=== PATIENT | male | born 1975 | race Caucasian/White ===

== ENCOUNTER 2017-11-28 06:12 | Outpatient (CLI) | payer OTHER ==
[~2017-11-28 06:12] MED LIST: ASPI-1265 PO; ATOR20TA PO; INSU100V36 SQ; PANT-47 PO; QUIN20TA29 PO; SUBC1EAC17 MC
[2017-11-28 10:08] LABS: ALANINE AMINOTRANSFERASE 45 U/L (12-78); ALBUMIN 4.1 G/DL (3.4-5.0); ALBUMIN/GLOBULIN RATIO 1.2 (1.1-1.5); ALKALINE PHOSPHATASE 81 IU/L (46-116); ANION GAP 6 (8-16); ASPARTATE AMINO TRANSFERASE 29 U/L (10-37); BILIRUBIN,TOTAL 0.6 MG/DL (0.1-1.0); BLOOD UREA NITROGEN 12 MG/DL (7-18); BUN/CREATININE RATIO 16.7 (5.4-32.0); CALCIUM 9.5 MG/DL (8.5-10.1); CHLORIDE 105 MMOL/L (99-107); CHOL/HDL RATIO 3.2 (0.00-4.99); CHOLESTEROL 174 MG/DL (0-200); CREATININE 0.72 MG/DL (0.60-1.10); GLUCOSE 142 MG/DL (70-104); HDL CHOLESTEROL 55 MG/DL (35-60); LDL CHOLESTEROL 110 MG/DL (50-100); SODIUM 140 MMOL/L (135-145); TOTAL CARBON DIOXIDE 29.1 MMOL/L (24-32); TOTAL PROTEIN 7.4 G/DL (6.4-8.2); TRIGLYCERIDES 66 MG/DL (20-135); eGFR > 90 ML/MIN
[2017-11-28 10:11] LABS: HEMOGLOBIN A1C 9.2 % (4.5-6.2)
== END 2017-11-28 23:59 | disposition home or self-care (01) ==
LOC: LAB 06:12
PROVIDERS: ATTEND Specialist
DX: E10.42 Type 1 diabetes mellitus with diabetic polyneuropathy (principal); I10 Essential (primary) hypertension; E78.00 Pure hypercholesterolemia, unspecified; Z98.890 Other specified postprocedural states
CPT/HCPCS: 36415; 80053; 80061; 83036

== ENCOUNTER 2017-12-05 19:19 | Inpatient (IN) | payer OTHER ==
[~2017-12-05] VITALS: Ht 174 cm; Wt 82.0 kg
[2017-12-05 19:48] LABS: BASOPHILS % (AUTO) 0 % (0-1); EOSINOPHILS % (AUTO) 0 % (0-6); HEMATOCRIT 45.9 % (42.0-52.0); HEMOGLOBIN 15.3 g/dl (14.0-17.9); LYMPHOCYTES # (AUTO) 0.8 X10'3 (1.1-4.8); LYMPHOCYTES % (AUTO) 4.9 % (21-51); MEAN CORPUSCULAR HGB CONC 33.3 % (33.0-36.5); MEAN PLATELET VOLUME 11.4 FL (7.4-10.4); MONOCYTES # (AUTO) 0.7 X10'3 (0-0.9); MONOCYTES % (AUTO) 4.2 % (2-12); NEUTROPHILS # (AUTO) 15.6 X10'3 (1.8-7.7); NEUTROPHILS % (AUTO) 90.9 % (42-75); PLATELET COUNT 254 X10'3 (140-440); RED CELL DISTRIBUTION WIDTH 13.8 % (11.5-14.5); WHITE BLOOD COUNT 17.2 X10'3 (4.5-11.0)
[2017-12-05 20:00] LABS: PARTIAL THROMBOPLASTIN TIME 23 SECONDS (22-32); PROTHROMBIN TIME 10.5 SECONDS (9.0-12.0)
[2017-12-05 20:03] LABS: ALANINE AMINOTRANSFERASE 59 U/L (12-78); ALBUMIN 4.4 G/DL (3.4-5.0); ALBUMIN/GLOBULIN RATIO 1.2 (1.1-1.5); ALKALINE PHOSPHATASE 138 IU/L (46-116); ANION GAP 18 (8-16); ASPARTATE AMINO TRANSFERASE 24 U/L (10-37); BILIRUBIN,TOTAL 1.2 MG/DL (0.1-1.0); BLOOD UREA NITROGEN 29 MG/DL (7-18); BUN/CREATININE RATIO 19.3 (5.4-32.0); CALCIUM 10.2 MG/DL (8.5-10.1); CHLORIDE 95 MMOL/L (99-107); POTASSIUM 4.4 MMOL/L (3.5-5.1); SODIUM 138 MMOL/L (135-145); eGFR 51 ML/MIN
[2017-12-05 20:06] LABS: GLUCOSE 497 MG/DL (70-104)
[2017-12-05 20:14] LABS: GIANT PLATELET FEW; LARGE PLATELETS FEW; PLATELET ESTIMATE NORMAL
[2017-12-05] MEDS ORDERED: normal saline 1000ML IV soln IVB ONE ×2 (21:30→22:35)
[2017-12-05 22:13] LABS: D-DIMER < 0.19 MG/L FEU (0-0.50)
[2017-12-05] MEDS: nitroGLYCERIN 0.4mg SUBLingual tab SL PRN ×2 (23:03→23:19)
[2017-12-05] MEDS ORDERED: aspirin 81mg tab.chew PO ONE (23:20)
[2017-12-05] MEDS ORDERED: QUIN40TA PO (23:27)
[2017-12-05] MEDS ORDERED: MULT-38 PO (23:27)
[2017-12-05] MEDS ORDERED: ATOR40TA PO (23:27)
[2017-12-05] MEDS ORDERED: ondansetron/PF 4mg/2ml inj IV ONE (23:40)
[2017-12-06] MEDS ORDERED: acetaminophen 325mg tablet PO PRN (00:40)
[2017-12-06] MEDS ORDERED: mag hydrox/Alum hydrox/simeth 30ml oral suspension PO PRN (00:40)
[2017-12-06] MEDS ORDERED: ketorolac tromethamine 15mg/ml inj. IV ONE ×2 (00:40→03:20)
[2017-12-06] MEDS ORDERED: ondansetron/PF 4mg/2ml inj IV PRN (00:40)
[2017-12-06] MEDS ORDERED: magnesium hydroxide 30ml (MOM) UD suspension PO PRN (00:40)
[2017-12-06 02:10] VITALS: BP 99/41
[2017-12-06 06:00] VITALS: BP 98/54
[2017-12-06] MEDS ORDERED: dextrose ORAL solution 15 GM/59 ML bottle PO PRN ×2 (06:20)
[2017-12-06] MEDS ORDERED: MESSAGE TO PHARMACY PO ONE (06:20)
[2017-12-06] MEDS ORDERED: glucagon, human recombinant 1mg kit SUBCUT PRN (06:20)
[2017-12-06] MEDS ORDERED: dextrose 50%-water 50ml dispensing syringe IV PRN ×2 (06:20)
[2017-12-06] MEDS: insulin pump.resvr SQ SCH ×4 (08:00→21:00)
[2017-12-06] MEDS ORDERED: QUINAPRIL HCL PO SCH (08:00)
[2017-12-06] MEDS: normal saline 1000ml 1,000 ML IV SCH ×3 (08:41→19:29)
[2017-12-06] MEDS: pantoprazole 40mg Tablet.DR PO SCH (08:45)
[2017-12-06] MEDS: aspirin 81mg tab.chew PO SCH (08:45)
[2017-12-06] MEDS: lisinopril 20mg tablet PO SCH (08:45)
[2017-12-06] MEDS: atorvastatin 20mg tablet PO SCH (08:45)
[2017-12-06 11:00] VITALS: BP 109/57
[2017-12-06] MEDS: indomethacin 25mg capsule PO SCH ×2 (12:23→19:30)
[2017-12-06] MEDS: ketorolac trometh. 30mg/ml inj. IV PRN ×2 (12:23→21:38)
[2017-12-06 15:00] VITALS: BP 105/48
[2017-12-06 20:00] VITALS: BP 108/58
[2017-12-06 23:19] VITALS: BP 104/53
[2017-12-07 03:14] VITALS: BP 90/46
[2017-12-07] MEDS: normal saline 1000ml 1,000 ML IV SCH (05:38)
[2017-12-07] MEDS: ketorolac trometh. 30mg/ml inj. IV PRN (05:39)
[2017-12-07 06:00] VITALS: BP 113/57
[2017-12-07 06:12] LABS: BASOPHILS % (AUTO) 0.4 % (0-1); EOSINOPHILS # (AUTO) 0.2 X10'3 (0-0.9); EOSINOPHILS % (AUTO) 2.2 % (0-6); HEMATOCRIT 37.6 % (42.0-52.0); HEMOGLOBIN 12.7 g/dl (14.0-17.9); LYMPHOCYTES # (AUTO) 2.9 X10'3 (1.1-4.8); LYMPHOCYTES % (AUTO) 32.3 % (21-51); MEAN CORPUSCULAR HEMOGLOBIN 30.6 PG (27.0-31.0); MEAN CORPUSCULAR HGB CONC 33.8 % (33.0-36.5); MEAN CORPUSCULAR VOLUME 90.6 FL (78-98); MEAN PLATELET VOLUME 11.4 FL (7.4-10.4); MONOCYTES # (AUTO) 1.6 X10'3 (0-0.9); MONOCYTES % (AUTO) 17.7 % (2-12); NEUTROPHILS # (AUTO) 4.3 X10'3 (1.8-7.7); NEUTROPHILS % (AUTO) 47.4 % (42-75); PLATELET COUNT 230 X10'3 (140-440); RED BLOOD COUNT 4.15 X10'6 (4.70-6.10); RED CELL DISTRIBUTION WIDTH 13.9 % (11.5-14.5); WHITE BLOOD COUNT 9.1 X10'3 (4.5-11.0)
[2017-12-07 06:37] LABS: ALANINE AMINOTRANSFERASE 44 U/L (12-78); ALBUMIN 3.2 G/DL (3.4-5.0); ALBUMIN/GLOBULIN RATIO 1.2 (1.1-1.5); ALKALINE PHOSPHATASE 71 IU/L (46-116); ANION GAP 4 (8-16); ASPARTATE AMINO TRANSFERASE 28 U/L (10-37); BILIRUBIN,TOTAL 0.8 MG/DL (0.1-1.0); BLOOD UREA NITROGEN 22 MG/DL (7-18); BUN/CREATININE RATIO 27.5 (5.4-32.0); CALCIUM 8.7 MG/DL (8.5-10.1); CHLORIDE 106 MMOL/L (99-107); GLUCOSE 111 MG/DL (70-104); SODIUM 142 MMOL/L (135-145); TOTAL CARBON DIOXIDE 31.7 MMOL/L (24-32); TOTAL PROTEIN 5.9 G/DL (6.4-8.2); eGFR > 90 ML/MIN
[2017-12-07] MEDS: insulin pump.resvr SQ SCH ×2 (07:00→14:15)
[2017-12-07] MEDS: pantoprazole 40mg Tablet.DR PO SCH (08:00)
[2017-12-07] MEDS: indomethacin 25mg capsule PO SCH ×2 (08:01→14:03)
[2017-12-07] MEDS: atorvastatin 20mg tablet PO SCH (08:01)
[2017-12-07] MEDS: aspirin 81mg tab.chew PO SCH (08:01)
[2017-12-07] MEDS: lisinopril 20mg tablet PO SCH (08:02)
[2017-12-07 11:00] VITALS: BP 123/71
[2017-12-07] MEDS ORDERED: INDO25CA PO (11:08)
[2017-12-07] MEDS ORDERED: ketorolac tromethamine 15mg/ml inj. IV PRN (11:15)
== END 2017-12-07 16:21 | disposition home or self-care (01) | DRG 315 ==
LOC: ER 19:19 → ED HOLD 12-06 00:38 → PCU 3S 12-06 02:35
PROVIDERS: ADMIT Internal Medicine; ATTEND Family Medicine
DX: I30.1 Infective pericarditis (principal); N17.9 Acute kidney failure, unspecified; E10.22 Type 1 diabetes mellitus with diabetic chronic kidney disease; I25.10 Atherosclerotic heart disease of native coronary artery without angina pectoris; E86.0 Dehydration; I34.0 Nonrheumatic mitral (valve) insufficiency; Z96.41 Presence of insulin pump (external) (internal); G89.29 Other chronic pain; I12.9 Hypertensive chronic kidney disease with stage 1 through stage 4 chronic kidney disease, or unspecified chronic kidney disease; E78.00 Pure hypercholesterolemia, unspecified; E78.5 Hyperlipidemia, unspecified; K21.9 Gastro-esophageal reflux disease without esophagitis; Z87.11 Personal history of peptic ulcer disease; Z90.81 Acquired absence of spleen; Z88.8 Allergy status to other drugs, medicaments and biological substances; Z90.410 Acquired total absence of pancreas
CPT/HCPCS: 36415; 71045; 80053; 82948; 84484; 85025; 85379; 85610; 85651; 85730; 87070; 93005; 93306; 96374; 96375; 99285; J1885; J2270; J2405; J7030

== ENCOUNTER 2018-01-12 05:45 | Outpatient (CLI) | payer OTHER ==
[~2018-01-12 05:45] MED LIST changes: -ATOR20TA PO; +ATOR40TA PO; +INDO25CA PO; +MULT-38 PO; -QUIN20TA29 PO; +QUIN40TA PO
[2018-01-12 09:27] LABS: ALANINE AMINOTRANSFERASE 69 U/L (12-78); ALBUMIN/GLOBULIN RATIO 1.1 (1.1-1.5); ALKALINE PHOSPHATASE 91 IU/L (46-116); ANION GAP 7 (8-16); ASPARTATE AMINO TRANSFERASE 48 U/L (10-37); BILIRUBIN,TOTAL 0.6 MG/DL (0.1-1.0); BLOOD UREA NITROGEN 15 MG/DL (7-18); BUN/CREATININE RATIO 20.5 (5.4-32.0); CALCIUM 9.5 MG/DL (8.5-10.1); CHLORIDE 107 MMOL/L (99-107); CHOL/HDL RATIO 2.6 (0.00-4.99); CHOLESTEROL 139 MG/DL (0-200); CREATININE 0.73 MG/DL (0.60-1.10); GLUCOSE 74 MG/DL (70-104); HDL CHOLESTEROL 54 MG/DL (35-60); LDL CHOLESTEROL 72 MG/DL (50-100); POTASSIUM 3.9 MMOL/L (3.5-5.1); SODIUM 145 MMOL/L (135-145); TOTAL CARBON DIOXIDE 31.3 MMOL/L (24-32); TOTAL PROTEIN 7.8 G/DL (6.4-8.2); TRIGLYCERIDES 35 MG/DL (20-135); eGFR > 90 ML/MIN
== END 2018-01-12 23:59 | disposition home or self-care (01) ==
LOC: LAB 05:45
PROVIDERS: ATTEND Internal Medicine Interventional Cardiology
DX: E78.5 Hyperlipidemia, unspecified (principal); I10 Essential (primary) hypertension
CPT/HCPCS: 36415; 80053; 80061

== ENCOUNTER 2018-01-17 08:10 | Outpatient (CLI) | payer OTHER ==
[~2018-01-17] VITALS: Ht 175.3 cm; Wt 83.9 kg
[2018-01-17] VITALS (8 sets, daily range): BP systolic 110–129; BP diastolic 69–79
[2018-01-17] MEDS ORDERED: regadenoson 0.4mg/5ml syringe IV ONE ×2 (09:05→09:17)
[2018-01-17] MEDS ORDERED: aminophylline inj. 0 ML IV ONE (09:26)
== END 2018-01-17 23:59 | disposition home or self-care (01) ==
LOC: RAD 08:10
PROVIDERS: ATTEND Internal Medicine Interventional Cardiology
DX: I10 Essential (primary) hypertension (principal); R07.9 Chest pain, unspecified
CPT/HCPCS: 78452; 93017; A9500; J0280

== ENCOUNTER 2018-06-07 09:55 | Outpatient (CLI) | payer OTHER | END 2018-06-07 23:59 | disposition home or self-care (01) | LOC: RAD 09:55 | PROVIDERS: ATTEND Family Medicine | DX: R19.09 Other intra-abdominal and pelvic swelling, mass and lump (principal); R60.0 Localized edema; E10.9 Type 1 diabetes mellitus without complications; K21.9 Gastro-esophageal reflux disease without esophagitis | CPT/HCPCS: 72195 ==

== ENCOUNTER 2018-12-17 05:40 | Outpatient (CLI) | payer OTHER ==
[~2018-12-17 05:40] MED LIST changes: -INDO25CA PO; +INDO25CA18 PO
[2018-12-17 06:13] LABS: HEMOGLOBIN A1C 7.7 % (4.5-6.2)
[2018-12-17 06:18] LABS: ALANINE AMINOTRANSFERASE 41 U/L (12-78); ALBUMIN 3.9 G/DL (3.4-5.0); ALBUMIN/GLOBULIN RATIO 1.1 (1.1-1.5); ALKALINE PHOSPHATASE 79 IU/L (46-116); ANION GAP 6 (8-16); ASPARTATE AMINO TRANSFERASE 21 U/L (10-37); BILIRUBIN,TOTAL 0.6 MG/DL (0.1-1.0); BLOOD UREA NITROGEN 12 MG/DL (7-18); BUN/CREATININE RATIO 13.6 (5.4-32.0); CALCIUM 9.2 MG/DL (8.5-10.1); CHLORIDE 103 MMOL/L (99-107); CHOL/HDL RATIO 3.6 (0.00-4.99); CHOLESTEROL 168 MG/DL (0-200); CREATININE 0.88 MG/DL (0.60-1.10); GLUCOSE 138 MG/DL (70-104); HDL CHOLESTEROL 47 MG/DL (35-60); LDL CHOLESTEROL 110 MG/DL (50-100); POTASSIUM 3.6 MMOL/L (3.5-5.1); SODIUM 141 MMOL/L (135-145); TOTAL CARBON DIOXIDE 31.8 MMOL/L (24-32); TOTAL PROTEIN 7.4 G/DL (6.4-8.2); TRIGLYCERIDES 60 MG/DL (20-135); eGFR > 90 ML/MIN
[2018-12-17 06:45] LABS: HEMATOCRIT 48.6 % (42.0-52.0); HEMOGLOBIN 15.9 g/dl (14.0-17.9); MEAN CORPUSCULAR HEMOGLOBIN 30.2 PG (27.0-31.0); MEAN CORPUSCULAR HGB CONC 32.7 g/dL (33.0-36.5); MEAN CORPUSCULAR VOLUME 92.3 FL (78-98); MEAN PLATELET VOLUME 11.1 FL (7.4-10.4); PLATELET COUNT 281 X10'3 (140-440); RED BLOOD COUNT 5.26 X10'6 (4.70-6.10); RED CELL DISTRIBUTION WIDTH 13.4 % (11.5-14.5); WHITE BLOOD COUNT 10.8 X10'3 (4.5-11.0)
[2018-12-18 11:14] LABS: MICROALB/CRT, RATIO 2.8 mg/g creat (0.0-30.0)
== END 2018-12-17 23:59 | disposition home or self-care (01) ==
LOC: LAB 05:40
PROVIDERS: ATTEND Specialist
DX: E10.42 Type 1 diabetes mellitus with diabetic polyneuropathy (principal); Z79.82 Long term (current) use of aspirin; Z79.899 Other long term (current) drug therapy; Z88.8 Allergy status to other drugs, medicaments and biological substances
CPT/HCPCS: 36415; 80053; 80061; 82043; 82570; 83036; 85027

== ENCOUNTER 2019-07-17 06:51 | Outpatient (CLI) | payer OTHER ==
[~2019-07-17 06:51] MED LIST changes: +INDO-12 PO; -INDO25CA18 PO
[2019-07-17 19:56] LABS: BASOPHILS % (AUTO) 0.4 % (0-1); EOSINOPHILS # (AUTO) 0.1 X10'3 (0-0.9); EOSINOPHILS % (AUTO) 0.6 % (0-6); HEMATOCRIT 46.8 % (42.0-52.0); HEMOGLOBIN 15.4 g/dl (14.0-17.9); LYMPHOCYTES # (AUTO) 3.3 X10'3 (1.1-4.8); LYMPHOCYTES % (AUTO) 28.6 % (21-51); MEAN CORPUSCULAR HEMOGLOBIN 29.7 PG (27.0-31.0); MEAN CORPUSCULAR HGB CONC 32.9 g/dL (33.0-36.5); MEAN CORPUSCULAR VOLUME 90.4 FL (78-98); MEAN PLATELET VOLUME 10.2 FL (7.4-10.4); MONOCYTES # (AUTO) 1.1 X10'3 (0-0.9); MONOCYTES % (AUTO) 9.8 % (2-12); NEUTROPHILS % (AUTO) 60.6 % (42-75); PLATELET COUNT 294 X10'3 (140-440); RED BLOOD COUNT 5.18 X10'6 (4.70-6.10); RED CELL DISTRIBUTION WIDTH 13.8 % (11.5-14.5); WHITE BLOOD COUNT 11.6 X10'3 (4.5-11.0)
[2019-07-17 20:05] LABS: ALBUMIN 4.2 G/DL (3.4-5.0); ANION GAP 6 (8-16); BLOOD UREA NITROGEN 15 MG/DL (7-18); BUN/CREATININE RATIO 18.3 (5.4-32.0); CALCIUM 9.5 MG/DL (8.5-10.1); CHLORIDE 103 MMOL/L (99-107); CREATININE 0.82 MG/DL (0.60-1.10); GLUCOSE 247 MG/DL (70-104); SODIUM 139 MMOL/L (135-145); eGFR > 90 ML/MIN
== END 2019-07-17 23:59 | disposition home or self-care (01) ==
LOC: LAB 06:51
PROVIDERS: ATTEND Physician Assistant Surgical
DX: Z01.818 Encounter for other preprocedural examination (principal)
CPT/HCPCS: 36415; 80048; 85025

== ENCOUNTER 2019-09-09 15:14 | Outpatient (CLI) | payer OTHER ==
[2019-09-09 17:28] LABS: BASOPHILS # (AUTO) 0.1 X10'3 (0-0.2); BASOPHILS % (AUTO) 0.7 % (0-1); EOSINOPHILS # (AUTO) 0.1 X10'3 (0-0.9); EOSINOPHILS % (AUTO) 1.1 % (0-6); HEMATOCRIT 45.9 % (42.0-52.0); HEMOGLOBIN 15.3 g/dl (14.0-17.9); LYMPHOCYTES # (AUTO) 3.1 X10'3 (1.1-4.8); LYMPHOCYTES % (AUTO) 30.1 % (21-51); MEAN CORPUSCULAR HEMOGLOBIN 30.2 PG (27.0-31.0); MEAN CORPUSCULAR HGB CONC 33.2 g/dL (33.0-36.5); MEAN CORPUSCULAR VOLUME 90.9 FL (78-98); MEAN PLATELET VOLUME 10.7 FL (7.4-10.4); MONOCYTES # (AUTO) 1.2 X10'3 (0-0.9); MONOCYTES % (AUTO) 11.9 % (2-12); NEUTROPHILS # (AUTO) 5.8 X10'3 (1.8-7.7); NEUTROPHILS % (AUTO) 56.2 % (42-75); PLATELET COUNT 281 X10'3 (140-440); RED BLOOD COUNT 5.05 X10'6 (4.70-6.10); RED CELL DISTRIBUTION WIDTH 13.6 % (11.5-14.5); WHITE BLOOD COUNT 10.4 X10'3 (4.5-11.0)
[2019-09-09 17:40] LABS: ALANINE AMINOTRANSFERASE 46 U/L (12-78); ALBUMIN 4.1 G/DL (3.4-5.0); ALBUMIN/GLOBULIN RATIO 1.1 (1.1-1.5); ALKALINE PHOSPHATASE 92 IU/L (46-116); ANION GAP 6 (8-16); ASPARTATE AMINO TRANSFERASE 29 U/L (10-37); BILIRUBIN,TOTAL 0.8 MG/DL (0.1-1.0); BLOOD UREA NITROGEN 8 MG/DL (7-18); BUN/CREATININE RATIO 9.6 (5.4-32.0); CALCIUM 9.4 MG/DL (8.5-10.1); CHLORIDE 102 MMOL/L (99-107); CHOL/HDL RATIO 2.9 (0.00-4.99); CHOLESTEROL 137 MG/DL (0-200); CREATININE 0.83 MG/DL (0.60-1.10); GLUCOSE 181 MG/DL (70-104); HDL CHOLESTEROL 47 MG/DL (35-60); LDL CHOLESTEROL 80 MG/DL (50-100); POTASSIUM 3.8 MMOL/L (3.5-5.1); SODIUM 138 MMOL/L (135-145); TOTAL PROTEIN 7.9 G/DL (6.4-8.2); TRIGLYCERIDES 43 MG/DL (20-135); eGFR > 90 ML/MIN
[2019-09-09 18:06] LABS: LARGE PLATELETS FEW; PLATELET ESTIMATE NORMAL
[2019-09-11 08:16] LABS: MICROALB/CRT, RATIO 4.2 mg/g creat (0.0-30.0)
== END 2019-09-09 23:59 | disposition home or self-care (01) ==
LOC: LAB 15:14
PROVIDERS: ATTEND Specialist
DX: E10.9 Type 1 diabetes mellitus without complications (principal); E78.00 Pure hypercholesterolemia, unspecified
CPT/HCPCS: 36415; 80053; 80061; 82043; 82570; 83036; 85025

== ENCOUNTER 2019-09-12 06:52 | Outpatient (CLI) | payer OTHER | END 2019-09-12 23:59 | disposition home or self-care (01) | LOC: LAB 06:52 | PROVIDERS: ATTEND Specialist | DX: E03.9 Hypothyroidism, unspecified (principal) | CPT/HCPCS: 36415; 84439; 84443 ==

== ENCOUNTER 2020-03-10 08:13 | Outpatient (CLI) | payer OTHER ==
[2020-03-10 09:06] LABS: ALANINE AMINOTRANSFERASE 54 U/L (12-78); ALBUMIN 3.9 G/DL (3.4-5.0); ALBUMIN/GLOBULIN RATIO 1.1 (1.1-1.5); ALKALINE PHOSPHATASE 103 IU/L (46-116); ANION GAP 4 (8-16); ASPARTATE AMINO TRANSFERASE 36 U/L (10-37); BILIRUBIN,TOTAL 0.8 MG/DL (0.1-1.0); BLOOD UREA NITROGEN 15 MG/DL (7-18); BUN/CREATININE RATIO 16.7 (5.4-32.0); CHLORIDE 104 MMOL/L (99-107); CHOL/HDL RATIO 3.2 (0.00-4.99); CHOLESTEROL 132 MG/DL (0-200); GLUCOSE 169 MG/DL (70-104); HDL CHOLESTEROL 41 MG/DL (35-60); LDL CHOLESTEROL 75 MG/DL (50-100); POTASSIUM 4.1 MMOL/L (3.5-5.1); SODIUM 139 MMOL/L (135-145); TOTAL PROTEIN 7.4 G/DL (6.4-8.2); TRIGLYCERIDES 49 MG/DL (20-135); eGFR > 90 ML/MIN
[2020-03-10 09:16] LABS: HEMOGLOBIN A1C 8.5 % (4.5-6.2)
== END 2020-03-10 23:59 | disposition home or self-care (01) ==
LOC: LAB 08:13
PROVIDERS: ATTEND Specialist
DX: E10.42 Type 1 diabetes mellitus with diabetic polyneuropathy (principal)
CPT/HCPCS: 36415; 80053; 80061; 83036

== ENCOUNTER 2020-05-16 12:04 | Inpatient (IN) | payer BC, OTHER ==
[~2020-05-16] VITALS: Ht 175.3 cm; Wt 94.5 kg
[~2020-05-16 12:04] MED LIST changes: +LEVO500T2 PO
[2020-05-16 12:31] LABS: BASOPHILS # (AUTO) 0.1 X10'3 (0-0.2); BASOPHILS % (AUTO) 0.4 % (0-1); EOSINOPHILS # (AUTO) 0.1 X10'3 (0-0.9); EOSINOPHILS % (AUTO) 0.3 % (0-6); HEMATOCRIT 51.4 % (42.0-52.0); HEMOGLOBIN 16.9 g/dl (14.0-17.9); LYMPHOCYTES # (AUTO) 2.8 X10'3 (1.1-4.8); LYMPHOCYTES % (AUTO) 13.9 % (21-51); MEAN CORPUSCULAR HEMOGLOBIN 29.7 PG (27.0-31.0); MEAN CORPUSCULAR HGB CONC 32.8 g/dL (33.0-36.5); MEAN CORPUSCULAR VOLUME 90.4 FL (78-98); MEAN PLATELET VOLUME 10.5 FL (7.4-10.4); MONOCYTES # (AUTO) 1.2 X10'3 (0-0.9); MONOCYTES % (AUTO) 6.2 % (2-12); NEUTROPHILS # (AUTO) 15.8 X10'3 (1.8-7.7); NEUTROPHILS % (AUTO) 79.2 % (42-75); PLATELET COUNT 338 X10'3 (140-440); RED BLOOD COUNT 5.69 X10'6 (4.70-6.10); RED CELL DISTRIBUTION WIDTH 14.1 % (11.5-14.5); WHITE BLOOD COUNT 19.9 X10'3 (4.5-11.0)
[2020-05-16 12:47] LABS: ALANINE AMINOTRANSFERASE 37 U/L (12-78); ALBUMIN 4.5 G/DL (3.4-5.0); ALBUMIN/GLOBULIN RATIO 1.2 (1.1-1.5); ALKALINE PHOSPHATASE 104 IU/L (46-116); ANION GAP 5 (8-16); ASPARTATE AMINO TRANSFERASE 25 U/L (10-37); BILIRUBIN,TOTAL 1.3 MG/DL (0.1-1.0); BLOOD UREA NITROGEN 18 MG/DL (7-18); BUN/CREATININE RATIO 17.3 (5.4-32.0); CALCIUM 9.6 MG/DL (8.5-10.1); CHLORIDE 103 MMOL/L (99-107); CREATININE 1.04 MG/DL (0.60-1.10); GLUCOSE 200 MG/DL (70-104); LIPASE < 50 U/L (73-393); POTASSIUM 4.9 MMOL/L (3.5-5.1); SODIUM 140 MMOL/L (135-145); TOTAL CARBON DIOXIDE 31.6 MMOL/L (24-32); TOTAL PROTEIN 8.4 G/DL (6.4-8.2); eGFR 77 ML/MIN
[2020-05-16 12:50] LABS: CLARITY,URINE CLEAR (Clear); COLOR,URINE YELLOW (Yellow); GLUCOSE, URINE 100 mg/dl (Neg); KETONES,URINE NEGATIVE (Neg); LEUKOCYTE ESTERASE ,URINE NEGATIVE (Neg); NITRITES, URINE NEGATIVE (Neg); OCCULT BLOOD,URINE SMALL (Neg); PROTEIN,URINE NEGATIVE (Neg)
[2020-05-16 12:52] LABS: UA COLLECTION TYPE CLN CATCH MIDSTREAM
[2020-05-16 12:55] LABS: BACTERIA,URINE NONE SEEN /HPF (Neg); MUCUS STRANDS MANY /LPF (Neg); SQUAMOUS EPITHELIAL CELL,UR NONE SEEN /LPF (FEW); WBC,URINE NONE SEEN /HPF (0-4)
[2020-05-16] MEDS ORDERED: ondansetron/PF 4mg/2ml inj IV ONE ×3 (13:10→17:20)
[2020-05-16] MEDS ORDERED: morphine 4 MG/ML inj SYRINge IV ONE ×2 (13:10→14:45)
[2020-05-16] MEDS ORDERED: normal saline 1000ml 1,000 ML IV ONE ×2 (14:40→16:35)
[2020-05-16 15:52] LABS: BASOPHILS % (AUTO) 0.1 % (0-1); EOSINOPHILS % (AUTO) 0.1 % (0-6); HEMATOCRIT 46.4 % (42.0-52.0); HEMOGLOBIN 15.1 g/dl (14.0-17.9); LYMPHOCYTES # (AUTO) 1.4 X10'3 (1.1-4.8); LYMPHOCYTES % (AUTO) 5.6 % (21-51); MEAN CORPUSCULAR HEMOGLOBIN 29.6 PG (27.0-31.0); MEAN CORPUSCULAR HGB CONC 32.6 g/dL (33.0-36.5); MEAN CORPUSCULAR VOLUME 90.7 FL (78-98); MEAN PLATELET VOLUME 11.1 FL (7.4-10.4); MONOCYTES # (AUTO) 1.7 X10'3 (0-0.9); MONOCYTES % (AUTO) 6.5 % (2-12); NEUTROPHILS # (AUTO) 22.5 X10'3 (1.8-7.7); NEUTROPHILS % (AUTO) 87.7 % (42-75); PLATELET COUNT 292 X10'3 (140-440); RED BLOOD COUNT 5.12 X10'6 (4.70-6.10); RED CELL DISTRIBUTION WIDTH 13.8 % (11.5-14.5)
[2020-05-16 15:56] LABS: WHITE BLOOD COUNT 25.7 X10'3 (4.5-11.0)
[2020-05-16] MEDS ORDERED: diphenhydrAMINE 50 mg/ml inj IV ONE (16:00)
[2020-05-16] MEDS ORDERED: proCHLORperazine 10 MG/2 ml inj IV ONE (16:00)
[2020-05-16 16:17] LABS: TOTAL CELLS COUNTED 100
[2020-05-16 16:18] LABS: BURR CELLS 1+; LARGE PLATELETS FEW; PLATELET ESTIMATE NORMAL; TOXIC VACUOLATION FEW
[2020-05-16] MEDS ORDERED: magnesium hydroxide 30ml (MOM) UD suspension PO PRN (17:15)
[2020-05-16] MEDS ORDERED: acetaminophen 325mg tablet PO PRN (17:15)
[2020-05-16] MEDS ORDERED: ondansetron/PF 4mg/2ml inj IV PRN (17:15)
[2020-05-16] MEDS ORDERED: morphine 2 MG/ML inj. syringe IV PRN ×2 (17:15)
[2020-05-16] MEDS ORDERED: mag hydrox/Alum hydrox/simeth 30ml oral suspension PO PRN (17:15)
[2020-05-16] MEDS ORDERED: metoclopramide 5 mg/ml inj IV PRN (17:15)
[2020-05-16] MEDS: normal saline 1000ml 1,000 ML IV SCH (17:33)
[2020-05-16] MEDS: piperacillin/tazo 4.5gm/100ml 100 ML IV SCH ×2 (18:26→23:23)
[2020-05-16] MEDS ORDERED: QUIN20TA18 PO (18:32)
--- NOTE | 2020-05-16 19:23 | NUR ---
Patient in room ED 9. I have received report from Claudia MCLEOD and had the opportunity to ask questions and assume patient care.
[2020-05-16 19:40] VITALS: BP 141/71
--- NOTE | 2020-05-16 19:56 | NUR ---
PAGER ID: [phone] MESSAGE: Ronni Marcelo [phone]: Patient manages diabetes with an insulin pump and sensor. Can he continue to utilize this here? -Elsi MCLEOD [id number]
[2020-05-16] MEDS: pantoprazole 40 MG vial IV SCH (20:21)
[2020-05-16] MEDS: heparin, porcine 5000 units/ml vial SQ SCH (20:21)
[2020-05-16 22:00] VITALS: BP 115/79
[2020-05-17] VITALS (12 sets, daily range): BP systolic 107–131; BP diastolic 51–70
[2020-05-17] MEDS: normal saline 1000ml 1,000 ML IV SCH ×3 (01:57→16:02)
[2020-05-17 05:30] LABS: ALBUMIN 3.2 G/DL (3.4-5.0); ANION GAP 7 (8-16); BLOOD UREA NITROGEN 20 MG/DL (7-18); BUN/CREATININE RATIO 17.1 (5.4-32.0); CALCIUM 8.2 MG/DL (8.5-10.1); CHLORIDE 106 MMOL/L (99-107); CREATININE 1.17 MG/DL (0.60-1.10); GLUCOSE 244 MG/DL (70-104); POTASSIUM 4.3 MMOL/L (3.5-5.1); SODIUM 141 MMOL/L (135-145); TOTAL CARBON DIOXIDE 28.4 MMOL/L (24-32); eGFR 67 ML/MIN
--- NOTE | 2020-05-17 06:12 | NUR ---
Problems reprioritized. Patient report given, questions answered & plan of care reviewed with Charley MCLEOD.
[2020-05-17 06:17] LABS: BASOPHILS # (AUTO) 0.1 X10'3 (0-0.2); BASOPHILS % (AUTO) 0.5 % (0-1); EOSINOPHILS # (AUTO) 0.1 X10'3 (0-0.9); EOSINOPHILS % (AUTO) 0.8 % (0-6); HEMATOCRIT 42.1 % (42.0-52.0); HEMOGLOBIN 13.8 g/dl (14.0-17.9); LYMPHOCYTES # (AUTO) 2.5 X10'3 (1.1-4.8); LYMPHOCYTES % (AUTO) 12.8 % (21-51); MEAN CORPUSCULAR HEMOGLOBIN 29.9 PG (27.0-31.0); MEAN CORPUSCULAR HGB CONC 32.8 g/dL (33.0-36.5); MEAN CORPUSCULAR VOLUME 91.2 FL (78-98); MEAN PLATELET VOLUME 11.1 FL (7.4-10.4); MONOCYTES # (AUTO) 1.8 X10'3 (0-0.9); MONOCYTES % (AUTO) 9.2 % (2-12); NEUTROPHILS # (AUTO) 14.9 X10'3 (1.8-7.7); NEUTROPHILS % (AUTO) 76.7 % (42-75); PLATELET COUNT 274 X10'3 (140-440); RED BLOOD COUNT 4.61 X10'6 (4.70-6.10); RED CELL DISTRIBUTION WIDTH 13.8 % (11.5-14.5); WHITE BLOOD COUNT 19.4 X10'3 (4.5-11.0)
--- NOTE | 2020-05-17 06:27 | NUR ---
Patient in room PCU 3021. I have received report from Elsi MCLEOD and had the opportunity to ask questions and assume patient care.
[2020-05-17] MEDS: heparin, porcine 5000 units/ml vial SQ SCH ×2 (07:31→19:35)
[2020-05-17] MEDS: pantoprazole 40 MG vial IV SCH ×2 (07:45→19:35)
[2020-05-17] MEDS: piperacillin/tazo 4.5gm/100ml 100 ML IV SCH ×2 (07:45→16:02)
[2020-05-17 07:54] LABS: BURR CELLS 2+; LARGE PLATELETS FEW; PLATELET ESTIMATE NORMAL
[2020-05-17 07:56] LABS: SCHISTOCYTES FEW
[2020-05-17] MEDS ORDERED: pantoprazole 40mg Tablet.DR PO SCH (08:00)
[2020-05-17] MEDS: atorvastatin 20mg tablet PO SCH (08:27)
[2020-05-17] MEDS: lisinopril 20mg tablet PO SCH (08:28)
--- NOTE | 2020-05-17 10:10 | NUR ---
I have told Dr. Meneses that Ginger from GI stated that the GI doc would like to have patient to have NGT - Dr. Meneses said that he would not order NGT insertion for this patient Addendum: 05/17/20 at 1013 by Jarocho Dominique RN Patient has not feeling nauseous nor vomiting at this time, patient passing gas and has bowel sound during my assessment
[2020-05-17] MEDS ORDERED: LIDOcaine Viscous 15ml cup ONE (12:34)
[2020-05-17] MEDS ORDERED: MIDAZolam 1mg/ml 10ml vial ONE (12:34)
[2020-05-17] MEDS ORDERED: fentaNYL/PF 50MCG/1 ML 2ML syringe ONE (12:34)
--- NOTE | 2020-05-17 15:45 | NUR ---
PAGER ID: [phone] MESSAGE: TITI Avendaño RN ext [phone]. RE: Ronni Marcelo. Patient just got back from EGD result with recommendations in the chart for your review
--- NOTE | 2020-05-17 18:22 | NUR ---
Problems reprioritized. Patient report given, questions answered & plan of care reviewed with Regina MCLEOD.
--- NOTE | 2020-05-17 18:25 | NUR ---
Patient in room PCU 3021. I have received report from SHANI Whitehead and had the opportunity to ask questions and assume patient care.
--- NOTE | 2020-05-17 19:43 | NUR ---
Patient reports that his blood sugar was 136 at 1830 per his sensor.
[2020-05-18] MEDS: piperacillin/tazo 4.5gm/100ml 100 ML IV SCH ×2 (00:09→07:35)
[2020-05-18 01:58] VITALS: BP 108/62
[2020-05-18] MEDS: normal saline 1000ml 1,000 ML IV SCH ×2 (02:00→09:14)
--- NOTE | 2020-05-18 06:07 | NUR ---
Problems reprioritized. Patient report given, questions answered & plan of care reviewed with SHANI Salazar.
[2020-05-18 06:36] LABS: BASOPHILS # (AUTO) 0.1 X10'3 (0-0.2); BASOPHILS % (AUTO) 0.8 % (0-1); EOSINOPHILS # (AUTO) 0.3 X10'3 (0-0.9); EOSINOPHILS % (AUTO) 3.5 % (0-6); HEMATOCRIT 41.2 % (42.0-52.0); HEMOGLOBIN 13.7 g/dl (14.0-17.9); LYMPHOCYTES # (AUTO) 3.1 X10'3 (1.1-4.8); LYMPHOCYTES % (AUTO) 31.1 % (21-51); MEAN CORPUSCULAR HEMOGLOBIN 30.3 PG (27.0-31.0); MEAN CORPUSCULAR HGB CONC 33.2 g/dL (33.0-36.5); MEAN CORPUSCULAR VOLUME 91.2 FL (78-98); MEAN PLATELET VOLUME 11.6 FL (7.4-10.4); MONOCYTES # (AUTO) 1.2 X10'3 (0-0.9); MONOCYTES % (AUTO) 12.7 % (2-12); NEUTROPHILS # (AUTO) 5.1 X10'3 (1.8-7.7); NEUTROPHILS % (AUTO) 51.9 % (42-75); PLATELET COUNT 276 X10'3 (140-440); RED BLOOD COUNT 4.52 X10'6 (4.70-6.10); RED CELL DISTRIBUTION WIDTH 13.8 % (11.5-14.5); WHITE BLOOD COUNT 9.8 X10'3 (4.5-11.0)
[2020-05-18 06:39] LABS: ALBUMIN 3.4 G/DL (3.4-5.0); ANION GAP 5 (8-16); BLOOD UREA NITROGEN 17 MG/DL (7-18); CALCIUM 8.9 MG/DL (8.5-10.1); CHLORIDE 108 MMOL/L (99-107); GLUCOSE 91 MG/DL (70-104); POTASSIUM 3.9 MMOL/L (3.5-5.1); SODIUM 144 MMOL/L (135-145); TOTAL CARBON DIOXIDE 31.2 MMOL/L (24-32); eGFR 80 ML/MIN
[2020-05-18 07:00] VITALS: BP 141/70
[2020-05-18] MEDS: pantoprazole 40 MG vial IV SCH (07:35)
--- NOTE | 2020-05-18 07:47 | NUR ---
Patient in room PCU 3021. I have received report from Regina MCLEOD and had the opportunity to ask questions and assume patient care.
[2020-05-18] MEDS: heparin, porcine 5000 units/ml vial SQ SCH (08:00)
[2020-05-18] MEDS: lisinopril 20mg tablet PO SCH (08:00)
[2020-05-18] MEDS: atorvastatin 20mg tablet PO SCH (10:41)
[2020-05-18] MEDS ORDERED: AMOX-422 PO (11:14)
--- NOTE | 2020-05-18 13:54 | NUR ---
Page sent to Dr. Meneses: PAGER ID: [phone] MESSAGE: [phone] Ronni Marcelo: Patient says he wasn't able to eat the more solid foods on his tray, but ate his mashed potatoes and jello. Just an FYI, still plan on DC'ing patient unless I hear from you otherwise. Thank you, Marie [phone]
--- NOTE | 2020-05-18 14:57 | NUR ---
Patient stable for discharge per MD order. All discharge information and education reviewed with patient before signing necessary paperwork. IV discontinued with catheter in tact, traffic monitor specialist removed, patient belongings packed up, new Rx called in to [facility] on [address]. Patient wheeled down to lobby and driven in private vehicle.
[2020-05-18] MEDS ORDERED: pantoprazole 40mg Tablet.DR PO SCH (20:00)
[2020-05-18] MEDS ORDERED: lactobacillus rhamnosus 10,000 MMU CELLS/CAPSULE PO SCH (20:00)
== END 2020-05-18 14:45 | disposition home or self-care (01) | DRG 872 ==
LOC: ER 12:04 → ED HOLD 17:14 → PCU 3S 19:30
PROVIDERS: ADMIT Family Medicine; ATTEND Family Medicine
DX: A41.9 Sepsis, unspecified organism (principal); K56.609 Unspecified intestinal obstruction, unspecified as to partial versus complete obstruction; K56.7 Ileus, unspecified; K29.80 Duodenitis without bleeding; K21.0 Gastro-esophageal reflux disease with esophagitis; I10 Essential (primary) hypertension; E78.5 Hyperlipidemia, unspecified; E78.00 Pure hypercholesterolemia, unspecified; E11.9 Type 2 diabetes mellitus without complications; K21.9 Gastro-esophageal reflux disease without esophagitis; Z88.1 Allergy status to other antibiotic agents; Z88.8 Allergy status to other drugs, medicaments and biological substances; Z90.81 Acquired absence of spleen
CPT/HCPCS: 36415; 43239; 74176; 80048; 80053; 81001; 83605; 83690; 84145; 85025; 87040; 87081; 99152; 99285; A4620; C9113; G0378; J0780; J1200; J1644; J2250; J2270; J2405; J2543; J3010; J7030; J7040

== ENCOUNTER 2020-10-19 15:28 | Outpatient (CLI) | payer BC ==
[~2020-10-19 15:28] MED LIST changes: -INDO-12 PO; -LEVO500T2 PO; -MULT-38 PO; +QUIN20TA18 PO; -QUIN40TA PO
== END 2020-10-19 23:59 | disposition home or self-care (01) ==
LOC: RAD 15:28
PROVIDERS: ATTEND Orthopaedic Surgery
DX: M17.12 Unilateral primary osteoarthritis, left knee (principal)
CPT/HCPCS: 73564

== ENCOUNTER 2021-01-08 23:24 | Emergency (ER) | payer BC ==
[~2021-01-08] VITALS: Ht 175.3 cm; Wt 88.6 kg
[2021-01-08 23:30] VITALS: BP 142/85
[2021-01-09] MEDS ORDERED: INSU100V11 SQ (00:08)
== END 2021-01-09 00:16 | disposition home or self-care (01) ==
LOC: ER 23:24
DX: E11.9 Type 2 diabetes mellitus without complications (principal); Z76.0 Encounter for issue of repeat prescription; E78.00 Pure hypercholesterolemia, unspecified; I10 Essential (primary) hypertension; K21.9 Gastro-esophageal reflux disease without esophagitis; G89.29 Other chronic pain; Z98.890 Other specified postprocedural states; Z88.8 Allergy status to other drugs, medicaments and biological substances; Z79.82 Long term (current) use of aspirin; Z79.4 Long term (current) use of insulin; Z79.899 Other long term (current) drug therapy
CPT/HCPCS: 99281

== ENCOUNTER 2021-02-16 12:12 | Outpatient (CLI) | payer BC ==
[~2021-02-16 12:12] MED LIST changes: +INSU100V11 SQ
[2021-02-16 20:23] LABS: ALBUMIN 4.2 G/DL (3.4-5.0); ANION GAP 8 (8-16); BLOOD UREA NITROGEN 20 MG/DL (7-18); CALCIUM 9.9 MG/DL (8.5-10.1); CHLORIDE 102 MMOL/L (99-107); CREATININE 0.87 MG/DL (0.60-1.10); GLUCOSE 135 MG/DL (70-104); PHOSPHORUS 3.9 MG/DL (2.3-4.5); POTASSIUM 4.2 MMOL/L (3.5-5.1); SODIUM 142 MMOL/L (135-145); eGFR > 90 ML/MIN
== END 2021-02-16 23:59 | disposition home or self-care (01) ==
LOC: LAB 12:12
PROVIDERS: ATTEND Family Medicine
DX: Z23 Encounter for immunization (principal); E10.9 Type 1 diabetes mellitus without complications
CPT/HCPCS: 36415; 80069; 82043; 82570

== ENCOUNTER 2021-03-31 10:47 | Emergency (ER) | payer BC, OTHER ==
[~2021-03-31] VITALS: Ht 175.3 cm; Wt 88.6 kg
[2021-03-31 10:57] VITALS: BP 142/75
== END 2021-03-31 12:13 | disposition home or self-care (01) ==
LOC: ER 10:47
DX: M25.462 Effusion, left knee (principal); M25.562 Pain in left knee; E78.00 Pure hypercholesterolemia, unspecified; I10 Essential (primary) hypertension; K21.9 Gastro-esophageal reflux disease without esophagitis; E11.9 Type 2 diabetes mellitus without complications; G89.29 Other chronic pain; Z87.11 Personal history of peptic ulcer disease; Z98.890 Other specified postprocedural states; Z88.8 Allergy status to other drugs, medicaments and biological substances; Z79.4 Long term (current) use of insulin; Z79.82 Long term (current) use of aspirin; Z79.899 Other long term (current) drug therapy
CPT/HCPCS: 29505; 73564; 99283

== ENCOUNTER 2021-05-11 10:51 | Outpatient (CLI) | payer OTHER | END 2021-05-11 23:59 | disposition home or self-care (01) | LOC: RAD 10:51 | PROVIDERS: ATTEND Orthopaedic Surgery | DX: M17.12 Unilateral primary osteoarthritis, left knee (principal) | CPT/HCPCS: 73564 ==

== ENCOUNTER 2021-06-13 10:34 | Emergency (ER) | payer BC, OTHER ==
[~2021-06-13] VITALS: Ht 175.3 cm; Wt 86.4 kg
[2021-06-13 11:39] VITALS: BP 157/81
[2021-06-13] MEDS ORDERED: CLIN300C54 PO (12:22)
[2021-06-13] MEDS ORDERED: AMOX-580 PO (12:22)
== END 2021-06-13 13:03 | disposition home or self-care (01) ==
LOC: EEVIPCON 10:36 → ER 10:36
DX: L03.213 Periorbital cellulitis (principal); I10 Essential (primary) hypertension; E78.00 Pure hypercholesterolemia, unspecified; K21.9 Gastro-esophageal reflux disease without esophagitis; Z88.1 Allergy status to other antibiotic agents; Z79.899 Other long term (current) drug therapy
CPT/HCPCS: 99283

== ENCOUNTER 2021-06-14 10:04 | Outpatient (CLI) | payer OTHER ==
[~2021-06-14 10:04] MED LIST changes: +AMOX-580 PO; +CLIN300C54 PO
== END 2021-06-14 23:59 | disposition home or self-care (01) ==
LOC: RAD 10:04
PROVIDERS: ATTEND Orthopaedic Surgery
DX: M25.552 Pain in left hip (principal)
CPT/HCPCS: 73502; 73590

== ENCOUNTER 2021-08-16 08:13 | Outpatient (CLI) | payer BC ==
[~2021-08-16 08:13] MED LIST changes: -AMOX-580 PO; -CLIN300C54 PO
[2021-08-16 09:27] LABS: BASOPHILS # (AUTO) 0.1 X10'3 (0-0.2); BASOPHILS % (AUTO) 1.1 % (0-1); EOSINOPHILS # (AUTO) 0.1 X10'3 (0-0.9); EOSINOPHILS % (AUTO) 1.2 % (0-6); HEMATOCRIT 46.4 % (42.0-52.0); HEMOGLOBIN 15.1 g/dl (14.0-17.9); LYMPHOCYTES # (AUTO) 2.7 X10'3 (1.1-4.8); LYMPHOCYTES % (AUTO) 24.5 % (21-51); MEAN CORPUSCULAR HEMOGLOBIN 29.3 PG (27.0-31.0); MEAN CORPUSCULAR HGB CONC 32.5 g/dL (33.0-36.5); MONOCYTES # (AUTO) 1.3 X10'3 (0-0.9); MONOCYTES % (AUTO) 11.6 % (2-12); NEUTROPHILS # (AUTO) 6.8 X10'3 (1.8-7.7); NEUTROPHILS % (AUTO) 61.6 % (42-75); PLATELET COUNT 315 X10'3 (140-440); RED BLOOD COUNT 5.15 X10'6 (4.70-6.10); RED CELL DISTRIBUTION WIDTH 13.8 % (11.5-14.5)
[2021-08-16 09:53] LABS: ALANINE AMINOTRANSFERASE 43 U/L (12-78); ALBUMIN 3.8 G/DL (3.4-5.0); ALBUMIN/GLOBULIN RATIO 0.9 (1.1-1.5); ALKALINE PHOSPHATASE 118 IU/L (46-116); ANION GAP 10 (8-16); ASPARTATE AMINO TRANSFERASE 29 U/L (10-37); BILIRUBIN,TOTAL 0.6 MG/DL (0.1-1.0); BLOOD UREA NITROGEN 12 MG/DL (7-18); CALCIUM 9.2 MG/DL (8.5-10.1); CHLORIDE 103 MMOL/L (99-107); CHOL/HDL RATIO 3.8 (0.00-4.99); CHOLESTEROL 151 MG/DL (0-200); CREATININE 0.75 MG/DL (0.60-1.10); GLUCOSE 165 MG/DL (70-104); HDL CHOLESTEROL 40 MG/DL (35-60); LDL CHOLESTEROL 95 MG/DL (50-100); SODIUM 141 MMOL/L (135-145); TOTAL CARBON DIOXIDE 28.4 MMOL/L (24-32); TOTAL PROTEIN 7.9 G/DL (6.4-8.2); TRIGLYCERIDES 67 MG/DL (20-135); eGFR > 90 ML/MIN
[2021-08-16 09:54] LABS: CLARITY,URINE CLEAR (Clear); COLOR,URINE YELLOW (Yellow); GLUCOSE, URINE NEGATIVE (Neg); KETONES,URINE NEGATIVE (Neg); NITRITES, URINE NEGATIVE (Neg); PH,URINE 7.5 (4.8-8.0); PROTEIN,URINE NEGATIVE (Neg); UA COLLECTION TYPE CLN CATCH MIDSTREAM
[2021-08-16 09:55] LABS: LEUKOCYTE ESTERASE ,URINE NEGATIVE (Neg); OCCULT BLOOD,URINE TRACE-INTACT (Neg); UROBILINOGEN,URINE 0.2 E.U/dL (0.2-1.0)
[2021-08-16 10:47] LABS: BACTERIA,URINE NONE SEEN /HPF (Neg); MUCUS STRANDS MANY /LPF (Neg); RBC,URINE 0-2 /HPF (0-2); SQUAMOUS EPITHELIAL CELL,UR FEW /LPF (FEW); WBC,URINE 0-4 /HPF (0-4)
[2021-08-16 12:46] LABS: BURR CELLS FEW; LARGE PLATELETS FEW; PLATELET ESTIMATE NORMAL
[2021-08-16 12:47] LABS: SCHISTOCYTES FEW; TARGET CELLS FEW
== END 2021-08-16 23:59 | disposition home or self-care (01) ==
LOC: LAB 08:13
PROVIDERS: ATTEND Family Medicine
DX: Z00.00 Encounter for general adult medical examination without abnormal findings (principal)
CPT/HCPCS: 36415; 80053; 80061; 81001; 83036; 84443; 85008; 85025

== ENCOUNTER 2021-08-16 08:53 | Outpatient (CLI) | payer BC | END 2021-08-16 23:59 | disposition home or self-care (01) | LOC: LAB 08:53 | DX: I10 Essential (primary) hypertension (principal); E78.5 Hyperlipidemia, unspecified; E10.9 Type 1 diabetes mellitus without complications | CPT/HCPCS: 36415; 82043; 82570; 84100 ==

== ENCOUNTER 2021-09-11 11:12 | Emergency (ER) | payer BC ==
[~2021-09-11] VITALS: Ht 175.3 cm; Wt 90.9 kg
[2021-09-11 11:26] VITALS: BP 145/87
[2021-09-11] MEDS ORDERED: SULF1TAB49 PO (12:33)
[2021-09-11] MEDS ORDERED: CEPH-585 PO (12:33)
== END 2021-09-11 12:45 | disposition home or self-care (01) ==
LOC: ER 11:12 → EEVIPCON 11:12 → ER 12:45
DX: L02.01 Cutaneous abscess of face (principal); E78.00 Pure hypercholesterolemia, unspecified; I10 Essential (primary) hypertension; K21.9 Gastro-esophageal reflux disease without esophagitis; E11.9 Type 2 diabetes mellitus without complications; G89.29 Other chronic pain; Z87.440 Personal history of urinary (tract) infections; Z98.890 Other specified postprocedural states; Z88.8 Allergy status to other drugs, medicaments and biological substances; Z79.82 Long term (current) use of aspirin; Z79.2 Long term (current) use of antibiotics; Z79.4 Long term (current) use of insulin; Z79.899 Other long term (current) drug therapy
CPT/HCPCS: 99283

== ENCOUNTER 2021-12-04 11:39 | Emergency (ER) | payer BC ==
[~2021-12-04] VITALS: Ht 175.3 cm; Wt 88.0 kg
[~2021-12-04 11:39] MED LIST changes: +CEPH-585 PO
[2021-12-04 11:46] VITALS: BP 141/82
== END 2021-12-04 14:06 | disposition home or self-care (01) ==
LOC: ER 11:40
DX: E10.9 Type 1 diabetes mellitus without complications (principal); Z76.0 Encounter for issue of repeat prescription; E78.00 Pure hypercholesterolemia, unspecified; I10 Essential (primary) hypertension; K21.9 Gastro-esophageal reflux disease without esophagitis; Z98.890 Other specified postprocedural states; Z88.1 Allergy status to other antibiotic agents; Z79.82 Long term (current) use of aspirin; Z79.4 Long term (current) use of insulin; Z79.899 Other long term (current) drug therapy
CPT/HCPCS: 99281

== ENCOUNTER → 2022-01-31 | Outpatient (CLI) | payer BC ==
[2022-01-31 09:33] LABS: CLARITY,URINE CLEAR (Clear); COLOR,URINE YELLOW (Yellow); GLUCOSE, URINE NEGATIVE (Neg); KETONES,URINE NEGATIVE (Neg); LEUKOCYTE ESTERASE ,URINE NEGATIVE (Neg); NITRITES, URINE NEGATIVE (Neg); OCCULT BLOOD,URINE NEGATIVE (Neg); PH,URINE 7.5 (4.8-8.0); PROTEIN,URINE NEGATIVE (Neg); UROBILINOGEN,URINE 0.2 E.U/dL (0.2-1.0)
[2022-01-31 09:35] LABS: EOSINOPHILS # (AUTO) 0.1 X10'3 (0-0.9); MEAN CORPUSCULAR HGB CONC 33.1 g/dL (33.0-36.5); MEAN PLATELET VOLUME 10.3 FL (7.4-10.4); NEUTROPHILS # (AUTO) 7.9 X10'3 (1.8-7.7); WHITE BLOOD COUNT 11.6 X10'3 (4.5-11.0)
[2022-01-31 09:36] LABS: BASOPHILS % (AUTO) 0.3 % (0-1); EOSINOPHILS % (AUTO) 0.5 % (0-6); HEMATOCRIT 46.1 % (42.0-52.0); HEMOGLOBIN 15.3 g/dl (14.0-17.9); LYMPHOCYTES # (AUTO) 2.4 X10'3 (1.1-4.8); LYMPHOCYTES % (AUTO) 20.6 % (21-51); MEAN CORPUSCULAR HEMOGLOBIN 29.8 PG (27.0-31.0); MONOCYTES # (AUTO) 1.2 X10'3 (0-0.9); MONOCYTES % (AUTO) 10.1 % (2-12); NEUTROPHILS % (AUTO) 68.5 % (42-75); PLATELET COUNT 329 X10'3 (140-440); RED BLOOD COUNT 5.12 X10'6 (4.70-6.10); RED CELL DISTRIBUTION WIDTH 14.1 % (11.5-14.5)
[2022-01-31 09:46] LABS: UA COLLECTION TYPE CLN CATCH MIDSTREAM
[2022-01-31 09:50] LABS: ALANINE AMINOTRANSFERASE 63 U/L (12-78); ALBUMIN 4.3 G/DL (3.4-5.0); ALBUMIN/GLOBULIN RATIO 1.2 (1.1-1.5); ALKALINE PHOSPHATASE 80 IU/L (46-116); ANION GAP 8 (8-16); ASPARTATE AMINO TRANSFERASE 37 U/L (10-37); BILIRUBIN,TOTAL 1.4 MG/DL (0.1-1.0); BLOOD UREA NITROGEN 16 MG/DL (7-18); BUN/CREATININE RATIO 21.1 (5.4-32.0); CALCIUM 9.6 MG/DL (8.5-10.1); CHLORIDE 105 MMOL/L (99-107); CHOL/HDL RATIO 3.1 (0.00-4.99); CHOLESTEROL 161 MG/DL (0-200); CREATININE 0.76 MG/DL (0.60-1.10); GLUCOSE 114 MG/DL (70-104); HDL CHOLESTEROL 52 MG/DL (35-60); HEMOGLOBIN A1C 9.1 % (4.5-6.2); LDL CHOLESTEROL 91 MG/DL (50-100); SODIUM 144 MMOL/L (135-145); TOTAL CARBON DIOXIDE 31.4 MMOL/L (24-32); TOTAL PROTEIN 7.8 G/DL (6.4-8.2); TRIGLYCERIDES 56 MG/DL (20-135); eGFR > 90 ML/MIN
[2022-01-31 09:57] LABS: ACANTHOCYTES FEW; PLATELET ESTIMATE NORMAL
[2022-01-31 09:58] LABS: LARGE PLATELETS FEW
== END | disposition home or self-care (01) ==
LOC: LAB 07:07
PROVIDERS: ATTEND Family Medicine
DX: I10 Essential (primary) hypertension (principal); R79.89 Other specified abnormal findings of blood chemistry; E78.2 Mixed hyperlipidemia; N39.0 Urinary tract infection, site not specified; R73.09 Other abnormal glucose
CPT/HCPCS: 36415; 80053; 80061; 81003; 83036; 85008; 85025

== ENCOUNTER 2022-04-26 15:54 | Outpatient (CLI) | payer BC ==
[~2022-04-26 15:54] MED LIST changes: -QUIN20TA18 PO; +QUIN20TA39 PO
[2022-04-26 17:21] LABS: HEMOGLOBIN A1C 9.3 % (4.5-6.2)
== END 2022-04-26 23:59 | disposition home or self-care (01) ==
LOC: LAB 15:54
PROVIDERS: ATTEND Family Medicine
DX: R73.09 Other abnormal glucose (principal); E03.9 Hypothyroidism, unspecified
CPT/HCPCS: 36415; 83036; 84443

== ENCOUNTER 2022-08-30 09:05 | Outpatient (CLI) | payer BC ==
[2022-08-30 09:43] LABS: ALBUMIN 4.1 G/DL (3.4-5.0); ANION GAP 8 (8-16); BLOOD UREA NITROGEN 12 MG/DL (7-18); BUN/CREATININE RATIO 15.6 (5.4-32.0); CALCIUM 9.6 MG/DL (8.5-10.1); CHLORIDE 104 MMOL/L (99-107); CREATININE 0.77 MG/DL (0.60-1.10); GLUCOSE 149 MG/DL (70-104); PHOSPHORUS 3.3 MG/DL (2.3-4.5); SODIUM 141 MMOL/L (135-145); TOTAL CARBON DIOXIDE 29.2 MMOL/L (24-32); eGFR > 90 ML/MIN
[2022-08-30 09:46] LABS: HEMOGLOBIN A1C 8.5 % (4.5-6.2)
== END 2022-08-30 23:59 | disposition home or self-care (01) ==
LOC: LAB 09:05
PROVIDERS: ATTEND Internal Medicine
DX: E10.9 Type 1 diabetes mellitus without complications (principal); E78.5 Hyperlipidemia, unspecified; I10 Essential (primary) hypertension
CPT/HCPCS: 36415; 80069; 82043; 82570; 83036

== ENCOUNTER 2023-04-03 06:42 | Outpatient (CLI) | payer BC ==
[~2023-04-03 06:42] MED LIST changes: -CEPH-585 PO
[2023-04-03 09:35] LABS: CLARITY,URINE CLEAR (Clear); COLOR,URINE YELLOW (Yellow); GLUCOSE, URINE 100 mg/dl (Neg); KETONES,URINE NEGATIVE (Neg); LEUKOCYTE ESTERASE ,URINE NEGATIVE (Neg); NITRITES, URINE NEGATIVE (Neg); OCCULT BLOOD,URINE NEGATIVE (Neg); PROTEIN,URINE NEGATIVE (Neg); UROBILINOGEN,URINE 0.2 E.U/dL (0.2-1.0)
[2023-04-03 09:36] LABS: UA COLLECTION TYPE CLN CATCH MIDSTREAM
[2023-04-03 09:40] LABS: BASOPHILS % (AUTO) 0.3 % (0-1); EOSINOPHILS # (AUTO) 0.1 X10'3 (0-0.9); EOSINOPHILS % (AUTO) 1.5 % (0-6); HEMATOCRIT 46.4 % (42.0-52.0); HEMOGLOBIN 14.9 g/dl (14.0-17.9); LYMPHOCYTES # (AUTO) 1.9 X10'3 (1.1-4.8); LYMPHOCYTES % (AUTO) 24.7 % (21-51); MEAN CORPUSCULAR HEMOGLOBIN 29.3 PG (27.0-31.0); MEAN CORPUSCULAR HGB CONC 32.2 g/dL (33.0-36.5); MEAN CORPUSCULAR VOLUME 90.8 FL (78-98); MEAN PLATELET VOLUME 11.1 FL (7.4-10.4); MONOCYTES # (AUTO) 0.9 X10'3 (0-0.9); MONOCYTES % (AUTO) 11.8 % (2-12); NEUTROPHILS # (AUTO) 4.8 X10'3 (1.8-7.7); NEUTROPHILS % (AUTO) 61.7 % (42-75); PLATELET COUNT 301 X10'3 (140-440); RED CELL DISTRIBUTION WIDTH 13.9 % (11.5-14.5); WHITE BLOOD COUNT 7.8 X10'3 (4.5-11.0)
[2023-04-03 10:04] LABS: ALANINE AMINOTRANSFERASE 35 U/L (12-78); ALBUMIN 4.1 G/DL (3.4-5.0); ALBUMIN/GLOBULIN RATIO 1.3 (1.1-1.5); ALKALINE PHOSPHATASE 97 IU/L (46-116); ANION GAP 6 (8-16); ASPARTATE AMINO TRANSFERASE 22 U/L (10-37); BILIRUBIN,TOTAL 0.6 MG/DL (0.1-1.0); BLOOD UREA NITROGEN 19 MG/DL (7-18); BUN/CREATININE RATIO 24.4 (10.0-20.0); CALCIUM 9.3 MG/DL (8.5-10.1); CHLORIDE 104 MMOL/L (99-107); CHOL/HDL RATIO 2.9 (0.00-4.99); CHOLESTEROL 139 MG/DL (0-200); CREATININE 0.78 MG/DL (0.60-1.10); GLUCOSE 187 MG/DL (70-104); HDL CHOLESTEROL 48 MG/DL (35-60); HEMOGLOBIN A1C 7.6 % (4.5-6.2); LDL CHOLESTEROL 77 MG/DL (50-100); POTASSIUM 4.1 MMOL/L (3.5-5.1); SODIUM 141 MMOL/L (135-145); TOTAL CARBON DIOXIDE 31.1 MMOL/L (24-32); TOTAL PROTEIN 7.3 G/DL (6.4-8.2); TRIGLYCERIDES 40 MG/DL (20-135); eGFR > 90 ML/MIN
[2023-04-04 14:35] LABS: PSA, ULTRASENSITIVE W/O SERIAL 0.405 ng/mL (0.000-4.000)
== END 2023-04-03 23:59 | disposition home or self-care (01) ==
LOC: LAB 06:42
PROVIDERS: ATTEND Family Medicine
DX: Z00.00 Encounter for general adult medical examination without abnormal findings (principal)
CPT/HCPCS: 36415; 80053; 80061; 81003; 83036; 84153; 84402; 84403; 84443; 85025

== ENCOUNTER 2023-10-04 14:35 | Outpatient (CLI) | payer BC ==
[~2023-10-04 14:35] MED LIST changes: +HUMALOG INSULIN PUMP SQ; +IBUP-1985 PO; -INSU100V11 SQ; -INSU100V36 SQ; +LISI20TA28 PO; +MULT-1085 PO; -QUIN20TA39 PO; -SUBC1EAC17 MC; +ZINC50CA2 PO
[2023-10-04 15:20] LABS: ALBUMIN 3.9 G/DL (3.4-5.0); ANION GAP 6 (8-16); BLOOD UREA NITROGEN 16 MG/DL (7-18); BUN/CREATININE RATIO 15.5 (10.0-20.0); CALCIUM 9.4 MG/DL (8.5-10.1); CHLORIDE 102 MMOL/L (99-107); CREATININE 1.03 MG/DL (0.60-1.10); GLUCOSE 129 MG/DL (70-104); PHOSPHORUS 3.7 MG/DL (2.3-4.5); POTASSIUM 4.1 MMOL/L (3.5-5.1); SODIUM 137 MMOL/L (135-145); TOTAL CARBON DIOXIDE 28.8 MMOL/L (24-32); eGFR 76 ML/MIN
[2023-10-04 15:36] LABS: HEMOGLOBIN A1C 7.5 % (4.5-6.2)
[2023-10-07 09:13] LABS: CREATININE, URINE 152.1 mg/dL (Not Estab.); MICROALBUMIN,U,RANDOM 4.3 ug/mL (Not Estab.)
== END 2023-10-04 23:59 | disposition home or self-care (01) ==
LOC: LAB 14:35
PROVIDERS: ATTEND Internal Medicine
DX: E10.9 Type 1 diabetes mellitus without complications (principal); E78.5 Hyperlipidemia, unspecified; I10 Essential (primary) hypertension
CPT/HCPCS: 36415; 80069; 82043; 82570; 83036

== ENCOUNTER 2023-10-10 05:36 | Day surgery (SDC) | payer BC ==
[2023-10-03 09:09] LABS: BASOPHILS # (AUTO) 0.1 X10'3 (0-0.2); EOSINOPHILS # (AUTO) 0.1 X10'3 (0-0.9); MEAN CORPUSCULAR VOLUME 90.8 FL (78-98); MONOCYTES # (AUTO) 1.1 X10'3 (0-0.9)
[2023-10-03 09:10] LABS: BASOPHILS % (AUTO) 0.6 % (0-1); EOSINOPHILS % (AUTO) 1.2 % (0-6); LYMPHOCYTES # (AUTO) 2.6 X10'3 (1.1-4.8); LYMPHOCYTES % (AUTO) 26.4 % (21-51); MEAN CORPUSCULAR HEMOGLOBIN 29.6 PG (27.0-31.0); MEAN CORPUSCULAR HGB CONC 32.6 g/dL (33.0-36.5); MONOCYTES % (AUTO) 10.9 % (2-12); NEUTROPHILS # (AUTO) 6.1 X10'3 (1.8-7.7); NEUTROPHILS % (AUTO) 60.9 % (42-75); PRE OP HEMATOCRIT 45.2 % (42.0-52.0); PRE OP HEMOGLOBIN 14.8 g/dL (14.0-17.9); PRE OP PLATELET COUNT 335 X10'3 (140-440); RED BLOOD COUNT 4.98 X10'6 (4.70-6.10); RED CELL DISTRIBUTION WIDTH 14.1 % (11.5-14.5)
[2023-10-03 09:44] LABS: ALBUMIN 3.9 G/DL (3.4-5.0); ALBUMIN/GLOBULIN RATIO 1.1 (1.1-1.5); ALKALINE PHOSPHATASE 93 IU/L (46-116); BLOOD UREA NITROGEN 15 MG/DL (7-18); BUN/CREATININE RATIO 18.1 (10.0-20.0); CALCIUM 9.4 MG/DL (8.5-10.1); CHLORIDE 101 MMOL/L (99-107); CREATININE 0.83 MG/DL (0.60-1.10); PRE OP ALT 40 U/L (30-65); PRE OP ANION GAP 6 (8-16); PRE OP AST 23 U/L (10-37); PRE OP BILIRUB, TOTAL 0.7 MG/DL (0.0-1.0); PRE OP GLUCOSE 132 MG/DL (70-104); PRE OP POTASSIUM 4.3 MMOL/L (3.4-5.1); PRE OP SODIUM 138 MMOL/L (135-145); TOTAL CARBON DIOXIDE 30.8 MMOL/L (24-32); TOTAL PROTEIN 7.3 G/DL (6.4-8.2); eGFR > 90 ML/MIN
[~2023-10-10] VITALS: Ht 172.7 cm; Wt 93.0 kg
[2023-10-10] VITALS (13 sets, daily range): BP systolic 112–144; BP diastolic 70–81; PULSE 66–74; RESP 11–16; TEMP 97.8; O2SAT 92–98
[~2023-10-10 05:36] MED LIST changes: +cefazolin 2gm/D5W 100mL 100 ML IV ONE; +famotidine 20mg tablet PO ONE; +ringers solution, lacted 1,000 ML IV SCH
[2023-10-10] MEDS ORDERED: triamcinolone acetonide 40mg/ml inj ONE (06:45)
[2023-10-10] MEDS ORDERED: BUPIVAcaine/PF 2.5mg/ml (0.25%) 10ml vial ONE (06:45)
[2023-10-10] MEDS ORDERED: LIDOcaine 1% (10mg/ml)w/preservative inj. 20ml MDV ONE (06:56)
[2023-10-10] MEDS ORDERED: triamcinolone acetonide 40mg/ml inj IM ONE (07:00)
[2023-10-10] MEDS ORDERED: BUPIVAcaine/PF 2.5mg/ml (0.25%) 10ml vial IJ ONE (07:00)
[2023-10-10] MEDS ORDERED: cloNIDine hcl/PF 100mcg/ml inj ONE (07:16)
[2023-10-10] MEDS ORDERED: fentaNYL/PF 50MCG/1 ML 2ML syringe ONE (07:19)
[2023-10-10] MEDS ORDERED: midazolam 1 mg/ML 2ml injection ONE (07:20)
[2023-10-10] MEDS ORDERED: sevoflurane 250ml liquid IH ONE (07:25)
--- NOTE | 2023-10-10 07:48 | NUR ---
Received from OR via [facility] TO [facility], accompanied by Anesthesiologist SOHA and report given by Anesthesiologist. PT PRESENTS ON 8L VIA MASK, VSS. PT IS AROUSABLE TO VOICE, PALPABLE RADIAL PULSES +2. LEFT SHOULDER BANDAID CDI. PATIENT STATES LEFT SHOULDER PAIN IS 4/10 BUT TOLERABLE. LR RUNNING THRU PIV.
[2023-10-10] MEDS ORDERED: HYDROcodone/acetaminophen 10/325mg tab PO PRN (07:55)
[2023-10-10] MEDS ORDERED: proCHLORperazine 10 MG/2 ml inj IV PRN (08:05)
[2023-10-10] MEDS ORDERED: ondansetron/PF 4mg/2ml inj IV PRN (08:05)
[2023-10-10] MEDS ORDERED: ringers solution, lacted 1,000 ML IV SCH (08:05)
[2023-10-10] MEDS ORDERED: meperidine/PF 25mg/ml syringe IV PRN ×3 (08:05)
[2023-10-10] MEDS ORDERED: morphine 4 MG/ML inj SYRINge IV PRN (08:05)
[2023-10-10] MEDS ORDERED: morphine 2 MG/ML inj. syringe IV PRN (08:05)
--- NOTE | 2023-10-10 08:13 | NUR ---
GAVE REPORT TO SHANI MCNAMARA - ALL QUESTIONS, COMMENTS, AND CONCERNS WERE ANSWERED AT THIS TIME.
[2023-10-10] MEDS ORDERED: ondansetron/PF 4mg/2ml inj ONE (08:15)
[2023-10-10] MEDS ORDERED: propofol inj 20 ML IV ONE (08:15)
[2023-10-10] MEDS ORDERED: ROPIVAcaine 0.5% (5mg/ml) 30ml vial ONE (08:15)
[2023-10-10] MEDS ORDERED: dexamethasone sod phosphate 4mg/ml inj. ONE (08:15)
--- NOTE | 2023-10-10 09:43 | NUR ---
ALL DISCHARGE CRITERIA HAS BEEN MET. VSS, PAIN AT A TOLERABLE LEVEL, ABLE TO SAFELY AMBULATE AND TRANSFER SELF. IV TAKEN OUT WITHOUT ANY COMPLICATIONS. ALL DISCHARGE INSTRUCTIONS COVERED WITH PATIENT AND ALL QUESTIONS ANSWERED. PATIENT TAKEN OUT VIA WHEELCHAIR WITH ALL BELONGINGS TO PERSONAL VEHICLE WHERE FAMILY DROVE PATIENT HOME. Addendum: 10/10/23 at 0952 by Kushal Briceno RN Amended: Links added.
== END 2023-10-10 09:43 | disposition home or self-care (01) ==
LOC: PAS 05:36
PROVIDERS: ATTEND Orthopaedic Surgery
DX: M75.02 Adhesive capsulitis of left shoulder (principal); K21.9 Gastro-esophageal reflux disease without esophagitis; E10.9 Type 1 diabetes mellitus without complications; I10 Essential (primary) hypertension; G89.18 Other acute postprocedural pain; Z79.82 Long term (current) use of aspirin; Z79.899 Other long term (current) drug therapy; Z88.8 Allergy status to other drugs, medicaments and biological substances; Z98.890 Other specified postprocedural states; Z90.81 Acquired absence of spleen; Z98.49 Cataract extraction status, unspecified eye; Z96.41 Presence of insulin pump (external) (internal); Z79.4 Long term (current) use of insulin
CPT/HCPCS: 20610; 23700; 36415; 64415; 80053; 82948; 85025; 93005; J0690; J0735; J1100; J2250; J2405; J2704; J2795; J3010; J3301; J3490; J7120; Z7506; Z7512; A4618

== ENCOUNTER 2024-04-17 07:19 | Outpatient (CLI) | payer BC ==
[~2024-04-17 07:19] MED LIST changes: -cefazolin 2gm/D5W 100mL 100 ML IV ONE; -famotidine 20mg tablet PO ONE; -ringers solution, lacted 1,000 ML IV SCH
[2024-04-17 10:22] LABS: BILIRUBIN,URINE NEGATIVE (Neg); CLARITY,URINE CLEAR (Clear); COLOR,URINE YELLOW (Yellow); GLUCOSE, URINE NEGATIVE (Neg); KETONES,URINE NEGATIVE (Neg); LEUKOCYTE ESTERASE ,URINE NEGATIVE (Neg); NITRITES, URINE NEGATIVE (Neg); OCCULT BLOOD,URINE NEGATIVE (Neg); PH,URINE 6.5 (4.8-8.0); PROTEIN,URINE NEGATIVE (Neg); UROBILINOGEN,URINE 0.2 E.U/dL (0.2-1.0)
[2024-04-17 10:25] LABS: BASOPHILS # (AUTO) 0.1 X10'3 (0-0.2); BASOPHILS % (AUTO) 0.4 % (0-1); EOSINOPHILS # (AUTO) 0.1 X10'3 (0-0.9); HEMOGLOBIN 15.1 g/dl (14.0-17.9); LYMPHOCYTES # (AUTO) 2.7 X10'3 (1.1-4.8); LYMPHOCYTES % (AUTO) 18.8 % (21-51); MEAN CORPUSCULAR HEMOGLOBIN 29.4 PG (27.0-31.0); MEAN CORPUSCULAR HGB CONC 32.7 g/dL (33.0-36.5); MEAN CORPUSCULAR VOLUME 89.8 FL (78-98); MEAN PLATELET VOLUME 10.4 FL (7.4-10.4); MONOCYTES # (AUTO) 1.9 X10'3 (0-0.9); MONOCYTES % (AUTO) 13.1 % (2-12); NEUTROPHILS # (AUTO) 9.7 X10'3 (1.8-7.7); NEUTROPHILS % (AUTO) 66.7 % (42-75); PLATELET COUNT 353 X10'3 (140-440); RED BLOOD COUNT 5.12 X10'6 (4.70-6.10); RED CELL DISTRIBUTION WIDTH 14.2 % (11.5-14.5); WHITE BLOOD COUNT 14.6 X10'3 (4.5-11.0)
[2024-04-17 10:26] LABS: UA COLLECTION TYPE CLN CATCH MIDSTREAM
[2024-04-17 10:34] LABS: HEMOGLOBIN A1C 7.8 % (4.5-6.2)
[2024-04-17 10:46] LABS: ALANINE AMINOTRANSFERASE 53 U/L (12-78); ALKALINE PHOSPHATASE 104 IU/L (46-116); ANION GAP 5 (8-16); ASPARTATE AMINO TRANSFERASE 30 U/L (10-37); BILIRUBIN,TOTAL 0.6 MG/DL (0.1-1.0); BLOOD UREA NITROGEN 18 MG/DL (7-18); BUN/CREATININE RATIO 20.2 (10.0-20.0); CALCIUM 9.5 MG/DL (8.5-10.1); CHLORIDE 101 MMOL/L (99-107); CHOL/HDL RATIO 3.1 (0.00-4.99); CHOLESTEROL 135 MG/DL (0-200); CREATININE 0.89 MG/DL (0.60-1.10); GLUCOSE 138 MG/DL (70-104); HDL CHOLESTEROL 44 MG/DL (35-60); LDL CHOLESTEROL 79 MG/DL (50-100); POTASSIUM 4.4 MMOL/L (3.5-5.1); SODIUM 138 MMOL/L (135-145); THYROID STIMULATING HORMONE 2.83 ulU/ml (0.34-4.50); TOTAL CARBON DIOXIDE 32.4 MMOL/L (24-32); TOTAL PROTEIN 7.9 G/DL (6.4-8.2); TRIGLYCERIDES 47 MG/DL (20-135); eGFR 90 ML/MIN
[2024-04-19 11:58] LABS: % FREE PSA 56.7 % (.); PROSTATE SPECIFIC AG, SERUM 0.3 ng/mL (0.0-4.0); PSA, FREE 0.17 ng/mL
== END 2024-04-17 23:59 | disposition home or self-care (01) ==
LOC: RAD 07:19
PROVIDERS: ATTEND Family Medicine
DX: Z00.00 Encounter for general adult medical examination without abnormal findings (principal)
CPT/HCPCS: 36415; 80053; 80061; 81003; 83036; 84153; 84154; 84443; 85025

== ENCOUNTER 2024-10-23 07:16 | Outpatient (CLI) | payer BC ==
[2024-10-23 09:17] LABS: ANION GAP 4 (8-16); BLOOD UREA NITROGEN 18 MG/DL (7-18); BUN/CREATININE RATIO 21.7 (10.0-20.0); CHLORIDE 104 MMOL/L (99-107); CREATININE 0.83 MG/DL (0.60-1.10); GLUCOSE 169 MG/DL (70-104); POTASSIUM 4.6 MMOL/L (3.5-5.1); SODIUM 140 MMOL/L (135-145)
[2024-10-23 09:18] LABS: ALBUMIN 3.9 G/DL (3.4-5.0); CALCIUM 9.5 MG/DL (8.5-10.1); PHOSPHORUS 3.3 MG/DL (2.3-4.5); eGFR > 90 ML/MIN
== END 2024-10-23 23:59 | disposition home or self-care (01) ==
LOC: LAB 07:16
PROVIDERS: ATTEND Internal Medicine
DX: E78.5 Hyperlipidemia, unspecified (principal); E10.9 Type 1 diabetes mellitus without complications; I10 Essential (primary) hypertension
CPT/HCPCS: 36415; 80069; 82043; 82570; 83036

== ENCOUNTER 2025-04-02 07:18 | Outpatient (CLI) | payer BC ==
[~2025-04-02 07:18] MED LIST changes: -ZINC50CA2 PO; +ZINC50CA5 PO
[2025-04-02 08:47] LABS: BILIRUBIN,URINE NEGATIVE (Neg); CLARITY,URINE CLEAR (Clear); COLOR,URINE YELLOW (Yellow); GLUCOSE, URINE NEGATIVE (Neg); KETONES,URINE TRACE mg/dl (Neg); LEUKOCYTE ESTERASE ,URINE NEGATIVE (Neg); OCCULT BLOOD,URINE TRACE-INTACT (Neg); PROTEIN,URINE TRACE mg/dl (Neg); UROBILINOGEN,URINE 0.2 E.U/dL (0.2-1.0)
[2025-04-02 08:48] LABS: BASOPHILS # (AUTO) 0.1 X10'3 (0-0.2); BASOPHILS % (AUTO) 0.5 % (0-1); EOSINOPHILS # (AUTO) 0.2 X10'3 (0-0.9); EOSINOPHILS % (AUTO) 1.5 % (0-6); HEMOGLOBIN 15.1 g/dl (14.0-17.9); LYMPHOCYTES # (AUTO) 2.4 X10'3 (1.1-4.8); LYMPHOCYTES % (AUTO) 23.7 % (21-51); MEAN CORPUSCULAR HEMOGLOBIN 29.4 PG (27.0-31.0); MEAN CORPUSCULAR HGB CONC 33.6 g/dL (33.0-36.5); MEAN CORPUSCULAR VOLUME 87.6 FL (78-98); MONOCYTES # (AUTO) 1.1 X10'3 (0-0.9); MONOCYTES % (AUTO) 11.4 % (2-12); NEUTROPHILS # (AUTO) 6.3 X10'3 (1.8-7.7); NEUTROPHILS % (AUTO) 62.9 % (42-75); PLATELET COUNT 312 X10'3 (140-440); RED BLOOD COUNT 5.14 X10'6 (4.70-6.10); RED CELL DISTRIBUTION WIDTH 14.1 % (11.5-14.5)
[2025-04-02 08:55] LABS: NITRITES, URINE NEGATIVE (Neg); UA COLLECTION TYPE CLN CATCH MIDSTREAM
[2025-04-02 08:57] LABS: HEMOGLOBIN A1C 7.5 % (4.5-6.2); MUCUS STRANDS MODERATE /LPF (Neg); SQUAMOUS EPITHELIAL CELL,UR FEW /LPF (FEW)
[2025-04-02 08:59] LABS: AMORPHOUS URATES 1+; BACTERIA,URINE 1+ /HPF (Neg); RBC,URINE 0-2 /HPF (0-2); WBC,URINE 0-4 /HPF (0-4)
[2025-04-02 09:16] LABS: ALANINE AMINOTRANSFERASE 41 U/L (12-78); ALBUMIN 3.9 G/DL (3.4-5.0); ALBUMIN/GLOBULIN RATIO 1.1 (1.1-1.5); ALKALINE PHOSPHATASE 100 IU/L (46-116); ANION GAP 8 (8-16); ASPARTATE AMINO TRANSFERASE 25 U/L (10-37); BILIRUBIN,TOTAL 1.1 MG/DL (0.1-1.0); BLOOD UREA NITROGEN 13 MG/DL (7-18); BUN/CREATININE RATIO 13.4 (10.0-20.0); CALCIUM 9.1 MG/DL (8.5-10.1); CHLORIDE 102 MMOL/L (99-107); CHOL/HDL RATIO 2.8 (0.00-4.99); CHOLESTEROL 117 MG/DL (0-200); CREATININE 0.97 MG/DL (0.60-1.10); GLUCOSE 149 MG/DL (70-104); HDL CHOLESTEROL 42 MG/DL (35-60); LDL CHOLESTEROL 61 MG/DL (50-100); POTASSIUM 3.9 MMOL/L (3.5-5.1); SODIUM 139 MMOL/L (135-145); THYROID STIMULATING HORMONE 2.32 ulU/ml (0.34-4.50); TOTAL CARBON DIOXIDE 29.3 MMOL/L (24-32); TOTAL PROTEIN 7.5 G/DL (6.4-8.2); TRIGLYCERIDES 55 MG/DL (20-135); eGFR 82 ML/MIN
[2025-04-03 17:23] LABS: % FREE PSA 56.7 % (.); CREATININE, URINE 433.8 mg/dL (Not Estab.); MICROALBUMIN,U,RANDOM 26.3 ug/mL (Not Estab.); PROSTATE SPECIFIC AG, SERUM 0.3 ng/mL (0.0-4.0); PSA, FREE 0.17 ng/mL
== END 2025-04-02 23:59 | disposition home or self-care (01) ==
LOC: LAB 07:18
PROVIDERS: ATTEND Family Medicine
DX: I10 Essential (primary) hypertension (principal); R79.89 Other specified abnormal findings of blood chemistry; E78.2 Mixed hyperlipidemia; E03.9 Hypothyroidism, unspecified; R77.9 Abnormality of plasma protein, unspecified; N39.0 Urinary tract infection, site not specified; R73.09 Other abnormal glucose; N40.0 Benign prostatic hyperplasia without lower urinary tract symptoms
CPT/HCPCS: 36415; 80053; 80061; 81001; 82043; 82570; 83036; 84153; 84154; 84443; 85025

== ENCOUNTER 2025-09-29 07:00 | Outpatient (CLI) | payer BC ==
[~2025-09-29 07:00] MED LIST changes: -IBUP-1985 PO; +IBUP600T52 PO
[2025-09-29 10:16] LABS: CHOL/HDL RATIO 2.9 (0.00-4.99); CREATININE 0.81 MG/DL (0.60-1.10); LDL CHOLESTEROL 81 MG/DL (50-100); TOTAL CARBON DIOXIDE 30.0 MMOL/L (24-32); eGFR > 90 ML/MIN
[2025-09-30 15:42] LABS: CREATININE, URINE 129.1 mg/dL (Not Estab.); MICROALB/CRT, RATIO 4.0 mg/g creat (0-29); MICROALBUMIN,U,RANDOM 4.7 ug/mL (Not Estab.)
== END 2025-09-29 23:59 | disposition home or self-care (01) ==
LOC: LAB 07:00
PROVIDERS: ATTEND Internal Medicine
DX: E10.9 Type 1 diabetes mellitus without complications (principal); E78.5 Hyperlipidemia, unspecified; I10 Essential (primary) hypertension
CPT/HCPCS: 36415; 80053; 80061; 82043; 82570; 83036